=== PATIENT | male | born 1970 | race Caucasian/White ===

== ENCOUNTER 2021-09-03 12:30 | Emergency (ER) | payer SELFPAY ==
[~2021-09-03] VITALS: Ht 177.8 cm; Wt 91.0 kg
[2021-09-03] MEDS ORDERED: LORAZEPAM 2MG/ML CPJ IV STA (12:58)
[2021-09-03] MEDS ORDERED: SODIUM CHLORIDE 0.9% 1,000 ML IV ONE ×2 (13:00)
[2021-09-03 13:22] LABS: BASOPHILS % 0.4 % (0.0-2.0); EOSINOPHILS % 0.2 % (0.0-5.0); HEMATOCRIT. 49.3 % (42.0-52.0); HEMOGLOBIN. 16.5 g/dL (14.0-18.0); LYMPHOCYTES % 19.9 % (20.0-50.0); MEAN CORPUSCULAR HEMOGLOBIN 32.5 pg (28.0-32.0); MEAN CORPUSCULAR VOLUME 97.2 fL (80.0-94.0); MEAN PLATELET VOLUME 8.5 fl (7.4-10.4); MONOCYTES % 6.5 % (2.0-8.0); PLATELET 252 x1000/uL (130-400); RED BLOOD CELL COUNT 5.07 mill/uL (4.7-6.1); RED CELL DISTRIBUTION WIDTH 13.4 % (11.6-14.6)
[2021-09-03 13:32] LABS: CHLORIDE 106 mEq/L (98-107)
[2021-09-03 13:35] LABS: ETHANOL BLOOD 33 mg/dL
[2021-09-03] MEDS ORDERED: LORAZEPAM 2MG/ML CPJ IV NR (15:30)
[2021-09-03 19:31] VITALS: BP 135/85
== END 2021-09-03 19:34 | disposition home or self-care (01) ==
LOC: ER 12:40
DX: T43.621A Poisoning by amphetamines, accidental (unintentional), initial encounter (principal); Y92.89 Other specified places as the place of occurrence of the external cause; R00.0 Tachycardia, unspecified; F17.290 Nicotine dependence, other tobacco product, uncomplicated; Z90.49 Acquired absence of other specified parts of digestive tract
CPT/HCPCS: 36415; 71045; 80053; 80307; 80320; 80329; 83880; 84484; 85025; 96361; 96374; 96376; 99284; J2060; J7030; G0480